=== PATIENT | male | born 1970 | race Caucasian/White ===

== ENCOUNTER 2017-03-26 08:14 | Inpatient (IN) | payer MEDICAID ==
[2017-03-26] MEDS ORDERED: ACETAMINOPHEN 500 MG TAB PO ONE (08:28)
[2017-03-26] MEDS ORDERED: IBUPROFEN 800 MG TAB PO ONE (08:30)
[2017-03-26] MEDS ORDERED: NS 1,000 ML IV ONE ×2 (08:31→08:42)
--- NOTE | 2017-03-26 08:44 | EDPHY ---
H & P Stated Complaint: FEVER,COUGH, CHEST PAIN WITH COUGH Time Seen by Provider: 03/26/17 08:38 HPI/ROS: CHIEF COMPLAINT: Chest pain, cough HISTORY OF PRESENT ILLNESS: The patient is a 46-year-old homeless man who recently moved here from [place] who comes to the emergency department via EMS complaining of a fever, cough, chest pain and spitting up blood. No vomiting. No abdominal pain. No back pain. He does have muscle aches in his legs and arms. He denies shortness of breath. He denies any cardiac history. He does smoke. He denies COPD or asthma. He is a temperature 103 degrees at triage. REVIEW OF SYSTEMS: Constitutional: See HPI EENTM: denies: blurred vision, double vision, nose congestion Respiratory: See HPI Cardiac: denies: chest pain, irregular heart rate, lightheadedness, palpitations Gastrointestinal/Abdominal: denies: abdominal pain, diarrhea, nausea, vomiting, blood streaked stools Genitourinary: denies: dysuria, frequency, hematuria, pain Musculoskeletal: Muscle pain Skin: denies: lesions, rash, jaundice, bruising Neurological: denies: headache, numbness, paresthesia, tingling, dizziness, weakness Hematologic/Lymphatic: denies: blood clots, easy bleeding, easy bruising Immunologic/allergic: denies: HIV/AIDS, transplant EXAM: GENERAL: Disheveled HEAD: Atraumatic, normocephalic. EYES: Pupils equal round and reactive to light, extraocular movements intact, sclera anicteric, conjunctiva are normal. ENT: TMs normal, nares patent, oropharynx clear without exudates. Moist mucous membranes. NECK: Normal range of motion, supple without lymphadenopathy or JVD. LUNGS: Breath sounds clear to auscultation bilaterally and equal. No wheezes rales or rhonchi. HEART: Regular rate and rhythm without murmurs, rubs or gallops. ABDOMEN: Soft, nontender, normoactive bowel sounds. No guarding, no rebound. No masses appreciated. BACK: No CVA tenderness, no spinal tenderness, step-offs or deformities EXTREMITIES: Body aches, Normal range of motion, no pitting or edema. No clubbing or cyanosis. NEUROLOGICAL: Cranial nerves II through XII grossly intact. Normal speech, normal gait. 5/5 strength, normal movement in all extremities, normal sensation PSYCH: Normal mood, normal affect. SKIN: Dirty, Warm, dry, normal turgor, no visible rashes or lesions. Source: Patient Exam Limitations: No limitations - Personal History Current Tetanus Diphtheria and Acellular Pertussis (TDAP): Unsure - Medical/Surgical History Hx Asthma: No Hx Chronic Respiratory Disease: No Hx Diabetes: No Hx Cardiac Disease: No Hx Renal Disease: No Hx Cirrhosis: No Hx Alcoholism: No Hx HIV/AIDS: No Hx Splenectomy or Spleen Trauma: No Other PMH: DENIES - Family History Significant Family History: No pertinent family hx - Social History Smoking Status: Current every day smoker Drug Use: Marijuana, Other Constitutional: Initial Vital Signs Temperature (C) 39.4 C H 03/26/17 08:39 Heart Rate 100 03/26/17 08:39 Respiratory Rate 18 03/26/17 08:39 Blood Pressure 127/79 H 03/26/17 08:39 O2 Sat (%) 93 03/26/17 08:39 O2 Delivery Mode Nasal Cannula O2 (L/minute) 2 Allergies/Adverse Reactions: No Known Allergies Allergy (Unverified 03/26/17 08:42) Home Medications: Medication Instructions Recorded NK [No Known Home Meds] 03/26/17 Medical Decision Making - Diagnostics EKG Interpretation: An EKG obtained and was read and documented in trace view. Please see trace view for full reading and report. Sinus tachycardia, repolarization abnormality , no reciprocal changes Imaging Results: Imaging Impressions Chest X-Ray 03/26/17 08:42 Impression: Perihilar bronchitis with a right middle lobe infiltrate, and some questionable subsegmental atelectasis versus a minimal infiltrate at the posterior left lung base. Clinical correlation and follow-up to assure resolution are recommended. Imaging: Discussed imaging studies w/ hvac designer Radiologist ED Course/Re-evaluation: 10:20 a.m. I discussed the case with Kasandra who will accept for Emdur. I have started the patient on antibiotics and will add lactate. We discussed his x- ray results. His fever is improving with treatment and fluids. Differential Diagnosis: Partial list of the Differential diagnosis considered include but were not limited to; pneumonia, influenza, bronchitis and although unlikely based on the history and physical exam, I also considered COPD, CHF, acute coronary disease, dissection. - Data Points Laboratory Results: Laboratory Results 03/26/17 08:37 03/26/17 08:37 03/26/17 03/26/17 03/26/17 08:37 08:37 08:37 WBC 9.66 10^3/uL H 10^3/uL (3.80-9.50) RBC 4.97 10^6/uL 10^6/uL (4.40-6.38) Hgb 14.8 g/dL g/dL (13.7-17.5) Hct 42.3 % % (40.0-51.0) MCV 85.1 fL fL (81.5-99.8) MCH 29.8 pg pg (27.9-34.1) MCHC 35.0 g/dL g/dL (32.4-36.7) RDW 13.2 % % (11.5-15.2) Plt Count 285 10^3/uL 10^3/uL (150-400) MPV 8.9 fL fL (8.7-11.7) Neut % (Auto) 89.0 % H % (39.3-74.2) Lymph % (Auto) 6.8 % L % (15.0-45.0) [place] % (Auto) 3.2 % L % (4.5-13.0) Eos % (Auto) 0.2 % L % (0.6-7.6) Baso % (Auto) 0.4 % % (0.3-1.7) Nucleat RBC Rel Count 0.0 % % (0.0-0.2) Absolute Neuts (auto) 8.59 10^3/uL H 10^3/uL (1.70-6.50) Absolute Lymphs (auto) 0.66 10^3/uL L 10^3/uL (1.00-3.00) Absolute Monos (auto) 0.31 10^3/uL 10^3/uL (0.30-0.80) Absolute Eos (auto) 0.02 10^3/uL L 10^3/uL (0.03-0.40) Absolute Basos (auto) 0.04 10^3/uL 10^3/uL (0.02-0.10) Absolute Nucleated RBC 0.00 10^3/uL 10^3/uL (0-0.01) Immature Gran % 0.4 % % (0.0-1.1) Immature Gran # 0.04 10^3/uL 10^3/uL (0.00-0.10) PT 13.9 SEC SEC (12.0-15.0) INR 1.05 (0.83-1.16) APTT 26.9 SEC SEC (23.0-38.0) Sodium 136 mEq/L mEq/L (134-144) Potassium 4.3 mEq/L mEq/L (3.5-5.2) Chloride 104 mEq/L mEq/L (97-110) Carbon Dioxide 22 mEq/l mEq/l (22-31) Anion Gap 10 mEq/L mEq/L (8-16) BUN 18 mg/dL mg/dL (7-23) Creatinine 1.0 mg/dL mg/dL (0.7-1.3) Estimated GFR > 60 Glucose 128 mg/dL H mg/dL (70-100) Calcium 9.7 mg/dL mg/dL (8.5-10.4) Total Bilirubin 0.6 mg/dL mg/dL (0.1-1.4) Conjugated Bilirubin 0.2 mg/dL mg/dL (0.0-0.5) Unconjugated Bilirubin 0.4 mg/dL mg/dL (0.0-1.1) AST 25 IU/L IU/L (17-59) ALT 45 IU/L IU/L (21-72) Alkaline Phosphatase 76 IU/L IU/L (38-126) Troponin I < 0.012 ng/mL ng/mL (0.000-0.034) Total Protein 6.4 g/dL g/dL (6.3-8.2) Albumin 3.8 g/dL g/dL (3.5-5.0) Lipase 73 IU/L IU/L (23-300) Nasal Influenza A PCR Nasal Influenza B PCR 03/26/17 08:34 WBC RBC Hgb Hct MCV MCH MCHC RDW Plt Count MPV Neut % (Auto) Lymph % (Auto) [place] % (Auto) Eos % (Auto) Baso % (Auto) Nucleat RBC Rel Count Absolute Neuts (auto) Absolute Lymphs (auto) Absolute Monos (auto) Absolute Eos (auto) Absolute Basos (auto) Absolute Nucleated RBC Immature Gran % Immature Gran # PT INR APTT Sodium Potassium Chloride Carbon Dioxide Anion Gap BUN Creatinine Estimated GFR Glucose Calcium Total Bilirubin Conjugated Bilirubin Unconjugated Bilirubin AST ALT Alkaline Phosphatase Troponin I Total Protein Albumin Lipase Nasal Influenza A PCR NEGATIVE FOR FLU A (NEGATIVE) Nasal Influenza B PCR NEGATIVE FOR FLU B (NEGATIVE) Medications Given: Albuterol/Ipratropium (Duoneb) 3 ml IH Q6 PRN PRN Reason: Short of Breath/Dyspnea Stop: 09/22/17 13:35 Last Admin: 03/26/17 14:15 Dose: 3 ml Discontinued Medications Acetaminophen (Tylenol) 1,000 mg PO EDNOW ONE Stop: 03/26/17 08:29 Last Admin: 03/26/17 08:36 Dose: 1,000 mg Sodium Chloride (Ns) 1,000 mls @ 0 mls/hr IV ONCE ONE PRN Reason: Wide Open Stop: 03/26/17 08:32 Last Admin: 03/26/17 08:33 Dose: 1,000 mls Sodium Chloride (Ns) 1,000 mls @ 0 mls/hr IV EDNOW ONE; Wide Open PRN Reason: Protocol Stop: 03/26/17 08:43 Last Admin: 03/26/17 09:07 Dose: 1,000 mls Sodium Chloride (Ns) 2,400 mls @ 4,800 mls/hr 30 ml/kg infuse over 30 min ( 2400 ml) IV EDNOW ONE PRN Reason: Protocol Stop: 03/26/17 10:38 Last Admin: 03/26/17 10:14 Dose: 2,400 mls Azithromycin 500 mg/ Dextrose 255 mls @ 255 mls/hr IV DAILY CL PRN Reason: Protocol Stop: 04/25/17 10:29 Last Admin: 03/26/17 10:59 Dose: 255 mls Ceftriaxone Sodium/Dextrose (Rocephin 1 Gm (Premix)) 50 mls @ 100 mls/hr IV DAILY CL PRN Reason: Protocol Stop: 04/25/17 10:29 Last Admin: 03/26/17 10:18 Dose: 50 mls Ibuprofen (Motrin) 800 mg PO EDNOW ONE Stop: 03/26/17 08:31 Last Admin: 03/26/17 08:35 Dose: 800 mg Departure - Departure Disposition: [facility] Acute Clinical Impression: Right middle lobe pneumonia Qualifiers: Pneumonia type: due to unspecified organism Qualified Code(s): J18.1 - Lobar pneumonia, unspecified organism Condition: Fair
[2017-03-26 08:49] LABS: PLATELET COUNT 285 10^3/uL (150-400)
--- NOTE | 2017-03-26 08:55 | CPEKG ---
Heart Rate: 102 RR Interval: 588 P-R Interval: 108 QRSD Interval: 96 QT Interval: 316 QTC Interval: 412 P [place]: 54 QRS [place]: 88 T Wave [place]: 38 EKG Severity - OTHERWISE NORMAL ECG - EKG Impression: SINUS TACHYCARDIA EKG Impression: ST ELEV, PROBABLE NORMAL EARLY REPOL PATTERN EKG Impression: No reciprocal changes Electronically Signed By: Jose Phelan 26-Mar-2017 09:00:55
[2017-03-26 08:59] LABS: INR 1.05 (0.83-1.16); PROTIME(PATIENT) 13.9 SEC (12.0-15.0)
[2017-03-26] MEDS ORDERED: NS 2,400 ML IV ONE (10:09)
[2017-03-26] MEDS ORDERED: AZITHROMYCIN IV 500 MG in D5W 250 ML IV SCH (10:30)
--- NOTE | 2017-03-26 11:02 | ASMTCMCOM ---
CM Note CM Note Notes: Met with patient briefly prior to transfer to the floor. patient is homeless "by choice" and has only been in [place] for "a few days". he is originally from [place] but was most recently living in [place]. He tells me that he is planning to meet up with his 2 brothers and they are considering trying to live/work in [place]. He tells me he has not yet decided if he will stay in [place]. Patient denies history of menatl illness, addiction. CM will be available during admission to assist with providing resources for patient at discharge. Date Signed: 03/26/2017 11:00 AM Electronically Signed By:Yissel Dai RN
--- NOTE | 2017-03-26 13:28 | PDGENHP ---
History and Physical - Chief Complaint cough and fever - History of Present Illness 46 y/o male smoker presents with a few days of fever, cough, chest discomfort, and hemoptysis. Symptoms started on Thursday with fever and chest discomfort. Thursday he had a hard time getting out of bed. Denies muscle aches. Currently homeless. Arrived in ED today via EMS found to be hypotensive and febrile. Started on Rocephin and Azithromycin and IV fluids History Information - Allergies/Home Medication List Allergies/Adverse Reactions: No Known Allergies Allergy (Unverified 03/26/17 08:42) Home Medications: NK [No Known Home Meds] 03/26/17 [Last Taken Unknown] I have personally reviewed and updated: family history, medical history, social history, surgical history - Past Medical History Additional medical history: denies - Surgical History Additional surgical history: rt knee surgery after chainsaw injury - Social History Smoking Status: Current every day smoker (1 ppd) Alcohol Use: None Drug Use: None Additional social history: homeless Review of Systems Review of Systems: ROS: 10pt was reviewed & negative except for what was stated in HPI & below Physical Exam Physical Exam: Temp Pulse Resp BP Pulse Ox 37.4 C 82 16 107/64 98 03/26/17 11:29 03/26/17 12:25 03/26/17 12:25 03/26/17 12:25 03/26/17 12:25 O2 (L/minute) 2 Constitutional: no apparent distress, appears nourished, not in pain, unkempt Eyes: PERRL, anicteric sclera, EOMI Ears, Nose, Mouth, Throat: moist mucous membranes, hearing normal, ears appear normal, no oral mucosal ulcers Cardiovascular: regular rate and rhythym, no murmur, rub, or gallop, No edema Respiratory: no respiratory distress, reduced air movement, expiratory wheeze, rhonchi, No inspiratory crackles Gastrointestinal: normoactive bowel sounds, soft, non-tender abdomen, no palpable masses, No guarding, No rebound Genitourinary: no bladder fullness, no bladder tenderness Skin: warm, normal color, no rashes or abrasions, no fluctuance, no induration, No mottled Neurologic: AAOx3, CN II-XII Intact, No facial droop Psychiatric: interacting appropriately, not anxious, not encephalopathic, thought process linear Lymph, Heme, Immunologic: no cervical LAD, no supraclavicular LAD Lab Data & Imaging Review 03/26/17 08:37 03/26/17 08:37 WBC 9.66 10^3/uL (3.80-9.50) H 03/26/17 08:37 RBC 4.97 10^6/uL (4.40-6.38) 03/26/17 08:37 Hgb 14.8 g/dL (13.7-17.5) 03/26/17 08:37 Hct 42.3 % (40.0-51.0) 03/26/17 08:37 MCV 85.1 fL (81.5-99.8) 03/26/17 08:37 MCH 29.8 pg (27.9-34.1) 03/26/17 08:37 MCHC 35.0 g/dL (32.4-36.7) 03/26/17 08:37 RDW 13.2 % (11.5-15.2) 03/26/17 08:37 Plt Count 285 10^3/uL (150-400) 03/26/17 08:37 MPV 8.9 fL (8.7-11.7) 03/26/17 08:37 Neut % (Auto) 89.0 % (39.3-74.2) H 03/26/17 08:37 Lymph % (Auto) 6.8 % (15.0-45.0) L 03/26/17 08:37 [place] % (Auto) 3.2 % (4.5-13.0) L 03/26/17 08:37 Eos % (Auto) 0.2 % (0.6-7.6) L 03/26/17 08:37 Baso % (Auto) 0.4 % (0.3-1.7) 03/26/17 08:37 Nucleat RBC Rel Count 0.0 % (0.0-0.2) 03/26/17 08:37 Absolute Neuts (auto) 8.59 10^3/uL (1.70-6.50) H 03/26/17 08:37 Absolute Lymphs (auto) 0.66 10^3/uL (1.00-3.00) L 03/26/17 08:37 Absolute Monos (auto) 0.31 10^3/uL (0.30-0.80) 03/26/17 08:37 Absolute Eos (auto) 0.02 10^3/uL (0.03-0.40) L 03/26/17 08:37 Absolute Basos (auto) 0.04 10^3/uL (0.02-0.10) 03/26/17 08:37 Absolute Nucleated RBC 0.00 10^3/uL (0-0.01) 03/26/17 08:37 Immature Gran % 0.4 % (0.0-1.1) 03/26/17 08:37 Immature Gran # 0.04 10^3/uL (0.00-0.10) 03/26/17 08:37 PT 13.9 SEC (12.0-15.0) 03/26/17 08:37 INR 1.05 (0.83-1.16) 03/26/17 08:37 APTT 26.9 SEC (23.0-38.0) 03/26/17 08:37 VBG Lactic Acid 0.7 mmol/L (0.7-2.1) 03/26/17 10:30 Sodium 136 mEq/L (134-144) 03/26/17 08:37 Potassium 4.3 mEq/L (3.5-5.2) 03/26/17 08:37 Chloride 104 mEq/L (97-110) 03/26/17 08:37 Carbon Dioxide 22 mEq/l (22-31) 03/26/17 08:37 Anion Gap 10 mEq/L (8-16) 03/26/17 08:37 BUN 18 mg/dL (7-23) 03/26/17 08:37 Creatinine 1.0 mg/dL (0.7-1.3) 03/26/17 08:37 Estimated GFR > 60 03/26/17 08:37 Glucose 128 mg/dL (70-100) H 03/26/17 08:37 Calcium 9.7 mg/dL (8.5-10.4) 03/26/17 08:37 Total Bilirubin 0.6 mg/dL (0.1-1.4) 03/26/17 08:37 Conjugated Bilirubin 0.2 mg/dL (0.0-0.5) 03/26/17 08:37 Unconjugated Bilirubin 0.4 mg/dL (0.0-1.1) 03/26/17 08:37 AST 25 IU/L (17-59) 03/26/17 08:37 ALT 45 IU/L (21-72) 03/26/17 08:37 Alkaline Phosphatase 76 IU/L (38-126) 03/26/17 08:37 Troponin I < 0.012 ng/mL (0.000-0.034) 03/26/17 08:37 Total Protein 6.4 g/dL (6.3-8.2) 03/26/17 08:37 Albumin 3.8 g/dL (3.5-5.0) 03/26/17 08:37 Lipase 73 IU/L (23-300) 03/26/17 08:37 Nasal Influenza A PCR NEGATIVE FOR FLU A (NEGATIVE) 03/26/17 08:34 Nasal Influenza B PCR NEGATIVE FOR FLU B (NEGATIVE) 03/26/17 08:34 Visualized and Interpreted Chest x-ray results: Yes Chest X-Ray results: infiltrate (rml) Visualized and Interpreted EKG results: Yes EKG Interpretation: Positive for: other (sinus tachy st elevation v2) Assessment & Plan Assessment: 46 y/o homeless male with h/o tobacco abuse presents with #Right middle lobe community acquired pneumonia (Acute) -will change antibiotics to levaquin -start duonebs -will consider prednisone tomorrow if not improving -followup blood cultures -repeat cxr 4-6 weeks to evel for underlying mass #Tobacco abuse -nicotine replacement #Homelessness Place in observation
[2017-03-26] MEDS ORDERED: ONDANSETRON 4 MG/2 ML VIAL IVP PRN (13:36)
[2017-03-26] MEDS ORDERED: IPRATROPIUM/ALBUTEROL 3 ML DEYVIAL IH PRN (13:36)
[2017-03-26] MEDS ORDERED: BENZONATATE 100 MG CAP PO PRN (13:37)
[2017-03-26] MEDS: guaiFENesin 600 MG TAB.ER PO SCH ×2 (14:57→21:20)
[2017-03-26] MEDS: ACETAMINOPHEN 325 MG TAB PO PRN ×2 (14:57→21:22)
[2017-03-27 05:35] LABS: PLATELET COUNT 254 10^3/uL (150-400)
[2017-03-27] MEDS: ACETAMINOPHEN 325 MG TAB PO PRN ×2 (07:28→18:17)
[2017-03-27] MEDS: guaiFENesin 600 MG TAB.ER PO SCH ×2 (07:28→19:59)
[2017-03-27] MEDS: NICOTINE 21 MG/24 HR PATCH TD SCH (07:29)
--- NOTE | 2017-03-27 08:42 | HOSPPROG ---
Hospitalist Progress Note Assessment/Plan: Assessment: 46 y/o homeless male with h/o tobacco abuse presents with #Right middle lobe community acquired pneumonia (Acute) with persistent right sided pleuritic chest pain -cont levaquin -cont duonebs -start motrin for pain -followup blood cultures -will order repeat cxr for tomorrow to eval for effusion #Tobacco abuse -nicotine replacement #Homelessness change to inpatient status given pna with increasing pain Subjective: reports sharp right sided pleuritic chest pain. no fevers. cont to have a cough Objective: Vital Signs Temp Pulse Resp BP Pulse Ox 36.6 C 98 20 106/65 93 03/27/17 08:00 03/27/17 08:00 03/27/17 08:00 03/27/17 08:00 03/27/17 08:00 Laboratory Results 03/27/17 05:08 03/27/17 05:08 03/26/17 03/27/17 03/28/17 05:59 05:59 05:59 Intake Total 7700 Output Total 300 Balance 7400 PT 13.9 SEC (12.0-15.0) 03/26/17 08:37 INR 1.05 (0.83-1.16) 03/26/17 08:37 - Physical Exam Constitutional: unkempt Respiratory: no respiratory distress, reduced air movement, rhonchi (right base) Gastrointestinal: normoactive bowel sounds, soft, non-tender abdomen, no palpable masses Skin: no rashes or abrasions, no fluctuance, no induration ICD10 Worksheet Patient Problems: Problems Problem Status Onset Right middle lobe pneumonia Acute
--- NOTE | 2017-03-27 14:30 | ASMTCMCOM ---
CM Note CM Note Notes: 03/27/2017 Case Management Note Met w/pt. Provided packet of resources for access to the homeless community supports in [place] Pt reports he has lived in [place] in the past. Pt reports that he is not eligible for a [facility] stay d/t sex offender status from the state of [place]. Pt plans to stay with a friend in a home on for 2 - 3 nights to recuperate and then "head on the road" with his brothers/friends. Case Management d/c poc: homeless Case management available if needs change. Date Signed: 03/27/2017 02:29 PM Electronically Signed By:Mily Gutiérrez RN
--- NOTE | 2017-03-27 16:13 | PDMN ---
Medical Necessity Medical necessity: Change to IP, as of 03/27/17, per MD; los >2 mn for ongoing management/tx of pneumonia w/persistent R-sided pleuritic chest pain; admit for further workup/monitoring, supportive care, IV abx, cxs; hx homelessness; per progress note & order 03/27/17
[2017-03-27] MEDS: IBUPROFEN 600 MG TAB PO PRN (16:23)
[2017-03-28] MEDS ORDERED: BENZONATATE 100 MG CAP PO SCH
[2017-03-28] MEDS ORDERED: ALBUTEROL 60 PUFFS/8 GM MDI IH SCH
[2017-03-28 04:36] VITALS: O2SAT 94
[2017-03-28 05:18] LABS: PLATELET COUNT 223 10^3/uL (150-400)
[2017-03-28 07:33] VITALS: BP 101/60; PULSE 70; RESP 18; TEMP 98.2
[2017-03-28] MEDS: guaiFENesin 600 MG TAB.ER PO SCH (08:48)
[2017-03-28] MEDS: NICOTINE 21 MG/24 HR PATCH TD SCH (08:48)
[2017-03-28] MEDS: IBUPROFEN 600 MG TAB PO PRN ×2 (08:48→14:33)
[2017-03-28] MEDS ORDERED: FLU VACC QS 2017-18 (3YR+)/PF 0.5 ML SYR (FLUARIX QUAD) IM ONE (09:14)
[2017-03-28] MEDS ORDERED: PNEUMOCOCCAL 0.5ML VACCINE VIAL IM ONE (09:14)
--- NOTE | 2017-03-28 11:50 | ASDISCHSUM ---
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 Yes: Emergency dept visits in Answers: 1 last 6 months Score: 4 Date Signed: 03/26/2017 10:50 AM Electronically Signed By:Yissel Dai RN [facility] CM Progress Note CM Note CM Note Notes: Met with patient briefly prior to transfer to the floor. patient is homeless "by choice" and has only been in [place] for "a few days". he is originally from [place] but was most recently living in [place]. He tells me that he is planning to meet up with his 2 brothers and they are considering trying to live/work in [place]. He tells me he has not yet decided if he will stay in [place]. Patient denies history of menatl illness, addiction. CM will be available during admission to assist with providing resources for patient at discharge. Date Signed: 03/26/2017 11:00 AM Electronically Signed By:Yissel Dai RN [facility] ANETA Progress Note CM Note CM Note Notes: 03/27/2017 Case Management Note Met w/pt. Provided packet of resources for access to the homeless community supports in [place] Pt reports he has lived in [place] in the past. Pt reports that he is not eligible for a nursing home stay d/t sex offender status from the state of [place]. Pt plans to stay with a friend in a home on for 2 - 3 nights to recuperate and then "head on the road" with his brothers/friends. Case Management d/c poc: homeless Case management available if needs change. Date Signed: 03/27/2017 02:29 PM Electronically Signed By:Mily Gutiérrez RN Intervention Information
--- NOTE | 2017-03-28 13:52 | GDS ---
[f rep st] DISCHARGE SUMMARY DISCHARGE DIAGNOSES: 1. Community-acquired pneumonia. 2. Tobacco abuse. 3. Homelessness. HOSPITAL COURSE BY PROBLEM: Community-acquired pneumonia: Patient presented to the hospital with ri ght-sided chest pain and fever. Chest x-ray revealed a right middle lobe pneumonia. Initially recei eleanor Rocephin and azithromycin in the emergency department. He received levofloxacin on day #2. On ho spital day #3, patient states he is feeling better and would like to be discharged. He denies any sh ortness of breath. He does continue to have some right-sided chest pain. Chest x-ray was done prior to discharge that showed persistent pneumonia without effusion. PHYSICAL EXAMINATION: VITAL SIGNS: On day of discharge, blood pressure 101/60, pulse 70, respirator y rate 18, O2 saturation 94% in room air, temperature afebrile. GENERAL: No acute distress. HEART: S1, S2. LUNGS: Clear. Some rhonchi in the right base. ABDOMEN: Soft. Extremities no edema. PERTINENT LABORATORY AND STUDIES: Chest x-ray done 03/28/2017; refer to report. DISCHARGE MEDICATIONS: Please refer to discharge medication reconciliation in [facility] for full deta ils. Below is a preliminary list. New medications on hospital discharge: Levofloxacin 750 mg p.o. daily to complete 7 days of treatmen t, ibuprofen 600 mg p.o. q.6 hours p.r.n. pain, Tessalon Perles 100 mg p.o. t.i.d. p.r.n. cough, albu terol inhaler 1-2 puffs q.4 hours p.r.n. wheezing. DISCHARGE INSTRUCTIONS: The patient will be discharged from the hospital and was urged to seek follo wup at the [facility] next week. He should seek medical attention if his condition worsens. He is advised to quit smoking. He should have a repeat chest x-ray done in 4-6 weeks to ensure that in filtrate has cleared and there are no signs of malignancy, given his history of tobacco use. /[id number]/MODL
--- NOTE | 2017-03-28 16:00 | ASMTCMCOM ---
CM Note CM Note Notes: Addendum to CM discharge note: Pt's meds provided through [facility]. Per hospitalist, pt required inhaler which was $93 through [facility]. Okay to provide inhaler given to the pharmacy. Date Signed: 03/28/2017 04:00 PM Electronically Signed By:LATOYA Peace
== END 2017-03-28 15:15 | disposition home or self-care (01) | DRG 195 ==
LOC: EDUNIT# → F3E 11:16 → OBSVTOIN 03-27 08:42
PROVIDERS: ADMIT Family Medicine; ATTEND Family Medicine
DX: J18.8 Other pneumonia, unspecified organism (principal); Z72.0 Tobacco use; Z59.0 Homelessness; Z23 Encounter for immunization
CPT/HCPCS: 96365; G0008; G0009; G0378; J0696

== ENCOUNTER 2017-06-16 16:56 | Emergency (ER) | payer MEDICAID ==
--- NOTE | 2017-06-16 17:03 | EDPHY ---
H & P Time Seen by Provider: 06/16/17 16:57 HPI/ROS: CHIEF COMPLAINT: Medical clearance HISTORY OF PRESENT ILLNESS: The patient is brought in by police for medical clearance for [facility]. The patient reports he was involved a fall 2-3 days ago in sustained an injury to his right knee and wrist. The patient was noted to have some areas of cellulitis and discharged over a superficial abrasion to the right wrist. The patient did not strike his head or lose consciousness. He has no complaints of headache, neck pain, chest pain, difficulty breathing or abdominal pain. REVIEW OF SYSTEMS: A comprehensive 10 point review of systems is otherwise negative aside from elements mentioned in the history of present illness. Source: Patient Exam Limitations: No limitations - Medical/Surgical History Hx Asthma: No Hx Chronic Respiratory Disease: No Hx Diabetes: No Hx Cardiac Disease: No Hx Renal Disease: No Hx Cirrhosis: No Hx Alcoholism: No Hx HIV/AIDS: No Hx Splenectomy or Spleen Trauma: No Other PMH: DENIES - Social History Smoking Status: Current every day smoker - Physical Exam Exam: General Appearance: Disheveled male Head: Atraumatic Eyes: Pupils equal, round, reactive ENT, Mouth: No hemotympanum, no oral trauma Neck: Nontender, trachea midline Respiratory: No chest wall tender, subcutaneous air, lungs clear bilaterally Cardiovascular: Regular rate and rhythm Abdomen: Abdomen is soft and nontender, pelvis stable Skin: Abrasion noted to the dorsum of the right wrist with mild purulence, no fluctuance or abscess appreciated Back: No midline T/L/S pain Extremities: Tenderness to palpation noted along the medial aspect of the right knee, tenderness to palpation right wrist, tenderness to palpation right fibula Neurological: A&Ox3, normal motor function, normal sensory exam Constitutional: Initial Vital Signs Temperature (C) 36.4 C 06/16/17 17:02 Heart Rate 78 06/16/17 17:02 Respiratory Rate 16 06/16/17 17:02 Blood Pressure 131/110 H 06/16/17 17:02 O2 Sat (%) 98 06/16/17 17:02 Allergies/Adverse Reactions: No Known Allergies Allergy (Unverified 03/26/17 08:42) Home Medications: Medication Instructions Recorded Albuterol [Proventil Inhaler HFA 1 - 2 puffs IH Q4H #1 mdi 03/28/17 (*)] Benzonatate [Tessalon Pearles] 100 mg PO TID PRN #20 cap 03/28/17 Ibuprofen [Motrin (*)] 600 mg PO Q6HRS PRN #20 tab 03/28/17 levOFLOXACIN [levAQUIN (*)] 750 mg PO DAILY AT 10AM #5 tab 03/28/17 Cephalexin [Keflex] 500 mg PO QID #28 cap 06/16/17 Medical Decision Making - Diagnostics Imaging Results: Right wrist x-ray: Images reviewed by myself, negative for acute fracture. Right tib-fib x-ray: Images reviewed by myself, negative for acute fracture. Right knee x-ray: Images reviewed by myself, vertical fracture noted of the patella, patella mechanism is intact radiographically ED Course/Re-evaluation: The patient presents to the ED for evaluation of wrist and knee pain following a fall. The patient was noted to have a vertically oriented partial patella fracture. The patient was placed in a knee immobilizer. He is advised to weight bear as tolerated. The patient will be advised to follow up with our on- call orthopedic surgeon for follow-up. This will likely heal without surgery. Additionally the patient is advised to take Keflex for his superficial wrist cellulitis. The patient has no evidence of an abscess or septic arthritis. He is neurologically intact. There is no evidence of an obvious head or cervical spine injury clinically. The patient is advised to wear his knee immobilizer until seen by Orthopedic surgery. He is given customary aftercare and return precautions regarding his wrist cellulitis. Differential Diagnosis: Differential diagnosis considered includes fracture, sprain, dislocation Departure - Departure Disposition: Home, Routine, Self-Care Clinical Impression: Cellulitis of wrist Patella fracture Qualifiers: Encounter type: initial encounter Fracture type: closed Fracture morphology: longitudinal Fracture alignment: nondisplaced Laterality: right Qualified Code(s ): S82.024A - Nondisplaced longitudinal fracture of right patella, initial encounter for closed fracture Condition: Good Instructions: Patellar Fracture (ED) Additional Instructions: 1. Wear knee immobilizer for your patella fracture. You can weightbear on your right leg however it should not been. This fracture will likely heal uneventfully without surgery. Please contact the surgeon you have been referred to to schedule an outpatient follow-up visit. 2. Begin antibiotics as prescribed for the redness on your right wrist. Please return to the ED for increasing pain, redness, swelling or fever. Referrals: Cleve Singh MD [Medical Doctor] - As per Instructions Prescriptions: Cephalexin [Keflex] 500 mg PO QID #28 cap
[2017-06-16 17:04] VITALS: BP 131/110; PULSE 78; RESP 16; TEMP 97.5; O2SAT 98
== END 2017-06-16 18:02 | disposition home or self-care (01) ==
LOC: EEVIPCON 16:56
DX: S82.024A Nondisplaced longitudinal fracture of right patella, initial encounter for closed fracture (principal); L03.113 Cellulitis of right upper limb; F17.200 Nicotine dependence, unspecified, uncomplicated; W18.39XA Other fall on same level, initial encounter

== ENCOUNTER 2017-08-02 09:19 | Emergency (ER) | payer MEDICAID ==
[~2017-08-02 09:19] MED LIST: CEPHALEXIN 500 MG CAP PO SCH
--- NOTE | 2017-08-02 09:49 | EDPHY ---
General Time Seen by Provider: 08/02/17 09:39 Narrative: CHIEF COMPLAINT: "a bump on my nut" HISTORY OF PRESENT ILLNESS: Patient complains of 3 days history of left-sided "bump on my nut," accompanied by increasing pain, redness. Associated with some left inguinal pain that started last night. No fever. No chills. Now rated as moderate to severe. Worse with palpation and movement. Some improvement rest. Does not radiate. No painful urination or discharge from the meatus. Not sexually active in the past 60 days. No other associated complaints or modifying factors. Uncertain when his last tetanus was administered. REVIEW OF SYSTEMS: Ten systems reviewed and are negative unless otherwise noted in the HPI PCP: None SPECIALISTS: None PAST MEDICAL HISTORY: None PAST SURGICAL HISTORY: No surgical history SOCIAL HISTORY: Daily smoker. Occasional marijuana use. Denies alcohol use. Currently homeless FAMILY HISTORY: Noncontributory EXAMINATION General Appearance: Alert, no distress. Unkempt. Head: normocephalic, atraumatic Eyes: Pupils equal and round, no conjunctival pallor or injection ENT, Mouth: Mucous membranes moist Neck: Normal inspection, supple, non-tender Respiratory: Lungs are clear to auscultation Cardiovascular: Regular rate and rhythm. No murmur Gastrointestinal: Abdomen is soft and nontender : Circumcised penis. No abnormality of the penis or the urethral meatus. There is small area of fluctuance and spontaneous drainage from the left hemiscrotum. No crepitus, gangrene or abnormality of the perineum or lower scrotum. Skin: Warm and dry, small area of abscess the left hemiscrotum. No extensive cellulitis. Extremities: Nontender, no pedal edema Psychiatric: Mood and affect normal DIFFERENTIAL DIAGNOSES: Including but not limited to scrotal abscess, testicular abscess, gangrene, staph, MRSA, anahi MDM: 9:40 a.m. Left-sided testicular pain and swelling with superficial abscess of the left scrotum noted. I do not appreciate any evidence of gangrene or necrosis. There is associated left inguinal lymphadenopathy. He is mildly tachycardic but he is afebrile in no acute distress. Will place IV and obtain laboratory studies. Ultrasound has already been ordered for further evaluation. 11:35 a.m. Notified by radiologist Dr. Acosta. Normal appearance of the testicles. There is epididymitis noted on the left with varicocele noted. No drainable abscess noted on the skin. No abscess of the scrotum. 11:50 a.m. Patient re-evaluated. We discussed the findings of the ultrasound. We discussed further testing including urinalysis, but I do not feel he warrants this as he denies any sexual activity. I will treat him for the epididymitis and skin infection with doxycycline and Keflex. These prescriptions are currently being filled by the medication assistance program and he will leave with these in hand, 1st dose given here. I will provide [facility] information to follow up with as well as Urology. We discussed ED precautions. He is discharged home stable condition. 3:20 p.m. Notified by case assembler that after the patient was discharged, there was difficulty obtaining his prescriptions due to a problem with his Medicaid insurance. Thus we will provide mobile sales assistant program medications. Due to the difficulty with cost, I have changed the doxycycline to Levaquin for the epididymitis treatment. Medications will be provided for him. SUPERVISION: Patient was independently examined, but I discussed the case with my secondary supervising physician Dr. Devine - Diagnostics Imaging Results: Imaging Impressions Testicular Ultrasound 08/02/17 09:39 Impression: 1. Normal testes. No orchitis or mass. 2. Left epididymitis and scrotal edema. No drainable fluid collection. 3. Left varicocele. Findings discussed with emergency department physician chemical laboratory assistant, Shad Vargas PA-C on August 02, 2017 at 11:19 a.m. - History Smoking Status: Current every day smoker - Objective Vital Signs: Initial Vital Signs Temperature (C) 97.9 F 08/02/17 09:29 Heart Rate 112 H 08/02/17 09:29 Respiratory Rate 20 08/02/17 09:29 Blood Pressure 124/80 H 08/02/17 09:29 O2 Sat (%) 97 08/02/17 09:29 O2 Delivery Mode Room Air Allergies/Adverse Reactions: No Known Allergies Allergy (Verified 08/02/17 09:28) Home Medications: Medication Instructions Recorded Cephalexin [Keflex (*)] 500 mg PO QID #40 cap 08/02/17 levOFLOXACIN [Levaquin] 500 mg PO DAILY #10 tablet 08/02/17 Laboratory Results: Laboratory Results 08/02/17 10:00 08/02/17 10:00 08/02/17 08/02/17 10:00 10:00 WBC 9.04 10^3/uL 10^3/uL (3.80-9.50) RBC 4.99 10^6/uL 10^6/uL (4.40-6.38) Hgb 14.5 g/dL g/dL (13.7-17.5) Hct 43.4 % % (40.0-51.0) MCV 87.0 fL fL (81.5-99.8) MCH 29.1 pg pg (27.9-34.1) MCHC 33.4 g/dL g/dL (32.4-36.7) RDW 13.4 % % (11.5-15.2) Plt Count 287 10^3/uL 10^3/uL (150-400) MPV 8.7 fL fL (8.7-11.7) Neut % (Auto) 71.5 % % (39.3-74.2) Lymph % (Auto) 16.4 % % (15.0-45.0) [place] % (Auto) 9.4 % % (4.5-13.0) Eos % (Auto) 2.1 % % (0.6-7.6) Baso % (Auto) 0.4 % % (0.3-1.7) Nucleat RBC Rel Count 0.0 % % (0.0-0.2) Absolute Neuts (auto) 6.46 10^3/uL 10^3/uL (1.70-6.50) Absolute Lymphs (auto) 1.48 10^3/uL 10^3/uL (1.00-3.00) Absolute Monos (auto) 0.85 10^3/uL H 10^3/uL (0.30-0.80) Absolute Eos (auto) 0.19 10^3/uL 10^3/uL (0.03-0.40) Absolute Basos (auto) 0.04 10^3/uL 10^3/uL (0.02-0.10) Absolute Nucleated RBC 0.00 10^3/uL 10^3/uL (0-0.01) Immature Gran % 0.2 % % (0.0-1.1) Immature Gran # 0.02 10^3/uL 10^3/uL (0.00-0.10) Sodium 140 mEq/L mEq/L (135-145) Potassium 4.6 mEq/L mEq/L (3.5-5.2) Chloride 106 mEq/L mEq/L (97-110) Carbon Dioxide 23 mEq/l mEq/l (22-31) Anion Gap 11 mEq/L mEq/L (8-16) BUN 17 mg/dL mg/dL (7-23) Creatinine 0.8 mg/dL mg/dL (0.7-1.3) Estimated GFR > 60 Glucose 123 mg/dL H mg/dL (70-100) Calcium 9.3 mg/dL mg/dL (8.5-10.4) Medications Given: Discontinued Medications Diphtheria/Tetanus/Acell Pertussis (Boostrix) 0.5 ml IM .ONCE ONE Stop: 08/02/17 10:00 Last Admin: 08/02/17 10:15 Dose: 0.5 ml Sodium Chloride (Ns) 1,000 mls @ 0 mls/hr IV EDNOW ONE; Wide Open PRN Reason: Protocol Stop: 08/02/17 09:51 Last Admin: 08/02/17 10:16 Dose: 1,000 mls Departure - Departure Disposition: Home, Routine, Self-Care Clinical Impression: Epididymitis, Varicocele present on ultrasound of scrotum, Cellulitis, scrotum Condition: Good Instructions: Cephalexin (By mouth), Doxycycline (By mouth), Epididymitis (ED) , Cellulitis (ED), Varicocele (ED) Additional Instructions: 1. Keflex as prescribed 4 times daily for 10 days to completion. Medication has been provided 4 year 2. Doxycycline as prescribed twice daily for 14 days to completion. Medication has been provided for you 3. Contact Dr. Cuevas for outpatient follow up 4. Contact [facility] for outpatient follow-up 5. ED precautions as discussed Referrals: NONE *PRIMARY CARE P,. [Primary Care Provider] - As per Instructions [facility],. [Clinic] - As per Instructions Annie Cuevas MD [Medical Doctor] - As per Instructions Prescriptions: Cephalexin [Keflex (*)] 500 mg PO QID #40 cap levOFLOXACIN [Levaquin] 500 mg PO DAILY #10 tablet
[2017-08-02] MEDS ORDERED: NS 1,000 ML IV ONE (09:50)
[2017-08-02] MEDS ORDERED: TDAP ADULT 0.5 ML INJ (BOOSTRIX) IM ONE (09:59)
[2017-08-02 10:13] LABS: PLATELET COUNT 287 10^3/uL (150-400)
[2017-08-02 11:32] VITALS: BP 112/78
[2017-08-02] MEDS ORDERED: MUPIROCIN 2% 22 GM OINT TP SCH (16:00)
--- NOTE | 2017-08-02 16:06 | ASMTCMCOM ---
CM Note CM Note Notes: Pt discharged from ED; prescriptions were called in to pt's pharmacy by Sayra HAMMER CM. Spoke with Pharmacist Bella, at pt's pharmacy, regarding scripts; informed they are unable to fill pt's scripts because pt has no insurance card & the information they do have on file indicates pt has "[facility] Insurance Plan". Attempted to provide Pharmacist with more information regarding pt's insurance. Pharmacist reports it is still not enough info & she is unable to reach anyone at pt's insurance company & is therefore unable to fill prescriptions. Informed Pharmacist ANETA will need to MAP meds for pt. Pharmacist reports pt already left Pharmacy, but if she sees him again she will send him back to [facility] ED. Pt is homeless. Attempted to call phone number listed in chart, but it is a wrong number. Spoke with ED Triage staff; reports pt was back at [facility] looking for medicines & left, stating he will be back either tonight or tomorrow. Spoke with PA regarding cost of Doxycycline; script written for Levaquin instead. Levaquin & Keppra MAPPED; discussed with [facility] Pharmacist. Medications given to ED shallot packer Pete. Date Signed: 08/02/2017 04:05 PM Electronically Signed By:Jackie Scott RN
--- NOTE | 2017-08-03 14:40 | ASMTCMCOM ---
CM Note CM Note Notes: Pt arrived to brain picker prescriptions from yesterday's ED visit (see previous CM note if necessary). Prescriptions found at [facility] desk and were given to pt. Pt recommended to follow up with [facility]. CM available for further assistance if needed. Date Signed: 08/03/2017 02:39 PM Electronically Signed By:Zoe Grady RN
--- NOTE | 2017-08-03 14:43 | ASDISCHSUM ---
Discharge Information Plan Status:Homeless/Custodial Medically Cleared to Leave: Discharge Date:08/02/2017 01:02 PM CM D/C Disposition:Streets (Homeless) ADT D/C Disposition:Home, Routine, Self-Care Projected Discharge Date:08/02/2017 01:02 PM Transportation at D/C:None or Unknown Discharge Delay Reason: Follow-Up Date:08/02/2017 01:02 PM Discharge Slot: Final Diagnosis: Placement Information Patient Contact Information Contact Name:EMILIOBela Relationship: Address: Home Phone: Work Phone: City: Alternate Phone: State/Zip Code: Email: Financial Information Financial Class:Medicaid Primary Plan Desc:[facility] Primary Plan Number:[id number] Secondary Plan Desc: Secondary Plan Number: Assessment Information [facility] CM Progress Note CM Note CM Note Notes: Pt discharged from ED; prescriptions were called in to pt's pharmacy by Sayra HAMMER CM. Spoke with Pharmacist Bella, at pt's pharmacy, regarding scripts; informed they are unable to fill pt's scripts because pt has no insurance card & the information they do have on file indicates pt has "[facility] Insurance Plan". Attempted to provide Pharmacist with more information regarding pt's insurance. Pharmacist reports it is still not enough info & she is unable to reach anyone at pt's insurance company & is therefore unable to fill prescriptions. Informed Pharmacist ANETA will need to MAP meds for pt. Pharmacist reports pt already left Pharmacy, but if she sees him again she will send him back to [facility] ED. Pt is homeless. Attempted to call phone number listed in chart, but it is a wrong number. Spoke with ED Triage staff; reports pt was back at [facility] looking for medicines & left, stating he will be back either tonight or tomorrow. Spoke with PA regarding cost of Doxycycline; script written for Levaquin instead. Levaquin & Keppra MAPPED; discussed with [facility] Pharmacist. Medications given to ED beverage inspection machine tender Pete. 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 Prescriptions found at [facility] desk and were given to pt. Pt recommended to follow up with [facility]. CM available for further assistance if needed. Date Signed: 08/03/2017 02:39 PM Electronically Signed By:Zoe Grady RN Intervention Information Intervention Type:Medication Date of Service:08/02/2017 03:38 PM Patient Type:Emergency Room Staff Member:HARMAN Scott Courtney Hours: Discipline: Severity: Comment:Carol Roper for pt.
== END 2017-08-02 13:02 | disposition home or self-care (01) ==
DX: N45.1 Epididymitis (principal); I86.1 Scrotal varices; F17.200 Nicotine dependence, unspecified, uncomplicated; E86.9 Volume depletion, unspecified; Z23 Encounter for immunization